=== PATIENT | male | born 1970 | race Caucasian/White ===

== ENCOUNTER 2023-05-07 16:57 | Emergency (ER) | payer BC, SELFPAY ==
[2023-05-07 16:58] VITALS: BP 165/96; PULSE 68; RESP 18; TEMP 36.3; O2SAT 94
--- NOTE | 2023-05-07 17:35 | ED.RN ---
IV documentation entered in error.
--- NOTE | 2023-05-07 17:59 | CT_ITS ---
STUDY: CT ABDOMEN AND PELVIS WITHOUT CONTRAST REASON FOR EXAM: Male, 52 years old. flank pain RADIATION DOSAGE (If Supplied By Facility): CTDIvol = ( 23.08 ) mGy, DLP = ( 1233.88 ) mGycm TECHNIQUE: Transaxial images were obtained from the dome of the diaphragm to the symphysis pubis without oral contrast, and without intravenous contrast. Sagittal and coronal images were reconstructed. Individualized dose optimization techniques were used for this CT. COMPARISON: None. FINDINGS: The visualized lung bases are unremarkable. The visualized portions of the heart are within normal limits. Liver is enlarged and fatty infiltrated without mass or bile duct dilatation.. Calcified gallstones are seen without pericholecystic edema .. Normal spleen. Normal pancreas. Normal bilateral adrenal glands. 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 Tiny nonobstructing left renal calculus. No evidence for obstruction or ureteral calculus. There is no left renal mass given the limited unenhanced nature of study. Retroaortic left renal vein noted consistent with normal variant. Normal visualized stomach. Normal small intestine. Normal colon. The appendix is visualized and appears normal. Normal abdominal aorta. Normal inferior vena cava. Normal retroperitoneum. Poorly distended thick walled bladder likely of no significance. Normal abdominal wall. Lumbar spine demonstrates mild spondylosis. CT/Abdomen/Pelvis without Cont IMPRESSION: Left nephrolithiasis without evidence for obstruction or ureteral calculus.. Cholelithiasis without evidence for acute cholecystitis. Other findings as above Electronically Signed: Skyler Tompkins MD at 19:33 EDT ,
[2023-05-07 18:13] LABS: Bacteria 0 SEEN /hpf (None Seen); Mucous, Urine 0 SEEN /hpf (<or=2+); Red Blood Cells-Urine 0 SEEN /hpf (0-5)
--- NOTE | 2023-05-07 18:13 | EX.ED.DYSGE1 ---
HPI History of Present Illness Chief Complaint: Flank Pain Informant: patient and spouse/S.O. Narrative Narrative: Intermittent left flank pain for the past month worse over 2 days. No urinary symptoms. States localized to the left flank region. History of congenital single kidney. He was started on Farxiga a month ago for his diabetes was having increasing thirst. Saw his PCP 2 days ago this has been stopped shortly prior to this. No history of kidney stones. No fevers or chills. History of hypertension diabetes and hyperlipidemia. PFSH PFSH Allergy/AdvReac Type Severity Reaction Status Date / Time bee venom protein (honey bee) Allergy Severe Anaphylaxis Verified 05/07/23 17:01 Social History Smoking Status: Never smoker ROS ROS ED Constitutional Constitutional ED: Denies chills, fever(s) or sweats Eyes Eyes: Denies change in vision ENT ENT ED: Denies dysphagia or sore throat Cardiovascular Cardiovascular: Denies chest pain, leg edema, palpitations or racing heartbeat Respiratory/Chest Respiratory/Chest: Denies cough, dyspnea or dyspnea on exertion Gastrointestinal Gastrointestinal: Denies abdominal pain, diarrhea, nausea or vomiting Genitourinary Genitourinary ED: Denies dysuria, hematuria or urinary frequency Musculoskeletal Musculoskeletal: Reports back pain; Denies extremity pain or neck pain Integumentary Denies rash or wounds Neurologic Neurologic: Denies headache(s), paresthesias or weakness EXAM Physical Exam Const Vital Signs: 05/07/23 16:58 05/07/23 18:58 05/07/23 20:00 Temperature 97.4 F L 96.9 F L Temperature Source Temporal Pulse Rate 68 78 64 Respiratory Rate 18 16 17 Blood Pressure 165/96 H 144/79 H 148/92 H Blood Pressure Mean 119 100 110 Pulse Ox 94 99 96 Oxygen Delivery Method Room Air Room Air Positive well nourished and well developed Constitutional Narrative: Nontoxic General Appearance ED: well developed and NAD HEENT Reports moist mucous membranes normocephalic and atraumatic Eyes PERRL, EOMs intact bilaterally and conjunctivae normal General Eye ED: Yes normal appearance of both eyes Neck no lymphadenopathy and supple General: Negative for tenderness Chest Wall Chest: Negative for tenderness Resp normal respiratory effort and normal air movement Effort and Inspection: symmetric chest movement; Negative for respiratory distress Cardio regular rate, regular rhythm and no murmurs Peripheral Pulses: pulses 2+ throughout GI normal to inspection, nondistended, normoactive bowel sounds and non-tender Palpation: Negative for guarding or rebound tenderness present Back/Spine no CVA tenderness and no thoracic nor lumbar tenderness Back/Spine Narrative: No rash or ecchymosis in the flank region. Extremity normal to inspection General Extremety ED: Negative for edema or tenderness General Extremity: Negative for edema Neuro oriented x3 and no sensory deficits noted Sensorium / Orientation: awake and alert Skin no rashes or lesions noted and no wounds MDM MDM MDM Narrative Medical decision making narrative: Interventions / MDM: Differential diagnosis: Flank pain, nephrolithiasis Diagnosis considered but do not suspect: No clinical shingles, urolithiasis however CT negative. My EKG interpretation: N/A Imaging independently reviewed and interpreted by myself: CT abdomen pelvis noncontrast: Tiny nephrolithiasis, no obstructive uropathy. Normal appendix. Gallstones noted. External documents reviewed: N/A Test considered but not ordered:N/A ED course: Patient declines any pain medicines intermittent left flank pain worsening last couple days. Renal stone protocol initiated. CT scan ordered. Labs stable. Urine no infection occult blood noted. CT scan with no obstructive uropathy tiny nephrolithiasis on the left side. Gallstones noted. Not having any biliary colic symptoms. Discussed results with the patient. He has no tobacco history. With hematuria will refer to urology. He will monitor for any rash for concerns of shingles. Use Tylenol as needed. All questions were answered. Re-evaluation: stable Disposition discussed with patient/family/significant other: Patient and significant other Case discussed with consulting clinician: N/A This note was generated with [employer] dictation software. It may contain incorrect words, spelling, and punctuation that were not noted in checking the note before signing. Lab Data Attestation: I reviewed the patient's lab results. Labs: Laboratory Results - last 24 hr 05/07/23 05/07/23 18:06 18:20 WBC 10.6 RBC 5.54 Hgb 15.4 Hct 45.3 MCV 81.8 MCH 27.8 MCHC 34.0 RDW Std Deviation 37.6 RDW Coeff of Kimani 12.6 Plt Count 253 MPV 10.5 Immature Gran % (Auto) 0.900 Neut % (Auto) 68.5 Lymph % (Auto) 21.1 [place] % (Auto) 7.3 Eos % (Auto) 1.5 Baso % (Auto) 0.7 Absolute Neuts (auto) 7.3 Absolute Lymphs (auto) 2.24 Nucleated RBC % 0 Sodium 140 Potassium 3.5 Chloride 105 Carbon Dioxide 27.0 Anion Gap 8 BUN 15 Creatinine 1.14 Est GFR (MDRD) Af Amer 87 Est GFR (MDRD) Non-Af 72 BUN/Creatinine Ratio 13.2 Glucose 185 H Calcium 9.3 Urine Color Yellow Urine Clarity Clear Urine pH 5.0 Ur Specific [place] 1.020 Urine Protein 30 H Urine Glucose (UA) Normal Urine Ketones Negative Urine Occult Blood 10 H Urine Nitrite Negative Urine Bilirubin Negative Urine Urobilinogen Normal Ur Leukocyte Esterase Negative Urine RBC 0 SEEN Urine WBC 0-5 SEEN Ur Squamous Epith Cells 0-5 SEEN Urine Bacteria 0 SEEN Urine Mucus 0 SEEN Radiography Diagnostic Testing: Clinical Impression(s) from Imaging Studies Abdomen/Pelvis CT 05/07/23 17:59 IMPRESSION: Left nephrolithiasis without evidence for obstruction or ureteral calculus.. Cholelithiasis without evidence for acute cholecystitis. Other findings as above Electronically Signed: Skyler Tompkins MD at 19:33 EDT Reading Location ID and State: [facility] / [place] Tel , Service support , Discharge Plan Triage Chief Complaint: Flank Pain ED Provider: Cory Singh Dx/Rx/DC Orders Clinical Impression: Hematuria, Congenital single kidney, Left flank pain Instructions: ED Flank Pain, Uncertain Cause, ED Hematuria Primary Care Provider: Kael Dove NP Referrals: Jefferson Espino MD [Med Staff - Active Staff] - 1-2 Weeks Kael Dove NP, [employer] [Primary Care Provider] - Activity Restrictions/Additional Instructions: CT scan nonobstructive small tiny stone in the kidneys. This not causing her symptoms. Mild blood in the urine. No infection. Labs are stable. Monitor for any rashes. Use Tylenol as needed. Follow-up with urology for further outpatient evaluation. Disposition Disposition: Home, Self Care Discharge Date/Time: 05/07/23 20:18
[2023-05-07 18:18] LABS: Color, Urine Yellow (Yellow); Glucose, Dipstick Normal (Normal); Ketone-Dipstick Negative (Negative); Leukocyte Esterase-Dipstick Negative /ul (Negative); Nitrite-Dipstick Negative (Negative); Occult Blood-Urine 10 /ul (Negative); Protein-Dipstick 30 mg/dl (Negative); Urine Bilirubin Dipstick Negative (Negative); Urine Clarity Clear (Clear); Urine Urobilinogen Normal (Normal)
[2023-05-07 18:28] LABS: Squamous Epithelial Cells - UA 0-5 SEEN /hpf (0-5); White Blood Cells 0-5 SEEN /hpf (0-5)
[2023-05-07 18:38] LABS: Absolute Lymphocyte Count 2.24 X10^3/uL (0.83-4.51); Absolute Neutrophil Count 7.3 X10^3/uL (2.0-7.7); Basophil# 0.07 X10^3/uL; Basophil% 0.7 % (0-1); Eosinophil# 0.16 X10^3/uL; Eosinophils% 1.5 % (0-5); Hematocrit 45.3 % (40-54); Hemoglobin 15.4 g/dL (13.0-16.5); Lymphocyte # 2.24 X10^3/ul (0.83-4.51); Lymphocyte % 21.1 % (19-41); Mean Corpuscular Hgb 27.8 pg (27.0-32.0); Mean Corpuscular Volume 81.8 fL (80-94); Mean Platelet Vol. 10.5 fl (6.2-12.0); Monocyte# 0.78 X10^3/uL; Monocyte% 7.3 % (0-10); NRBC Flagged by Analyzer 0 % (0-5); Neutrophil # 7.29 X10^3/uL (2.7-7.7); Neutrophil % 68.5 % (47-70); Platelet Count 253 K/mm3 (150-450); RBC Distribution Width CV 12.6 % (11.6-14.6); RBC Distribution Width SD 37.6 fl (35.1-43.9); Red Blood Count 5.54 M/mm3 (4.6-6.2); White Blood Count 10.6 K/mm3 (4.4-11.0)
[2023-05-07 18:51] LABS: Anion Gap 8 (5-15); BUN 15 mg/dL (7-18); BUN/Creat Ratio 13.2 RATIO (10-20); Calcium,Total 9.3 mg/dL (8.5-10.1); Chloride 105 mmol/L (98-107); Creatinine, Serum 1.14 mg/dL (0.70-1.30); EST Glomerular Filtration Rate 72 mL/min (>60); Est Glom Filt Rate - Afr Amer 87 mL/min (>60); Glucose 185 mg/dL (74-106); Potassium 3.5 mmol/L (3.5-5.1); Sodium Level 140 mmol/L (136-145)
[2023-05-07 18:58] VITALS: BP 144/79; PULSE 78; RESP 16; O2SAT 99
[2023-05-07 20:00] VITALS: BP 148/92; PULSE 64; RESP 17; TEMP 36.1; O2SAT 96
== END 2023-05-07 20:18 | disposition home or self-care (01) ==
PROVIDERS: Emergency Provider Emergency Medicine; PCP Nurse Practitioner Family; Visit Provider Emergency Medicine
DX: R31.9 Hematuria, unspecified (principal); E11.9 Type 2 diabetes mellitus without complications
CPT/HCPCS: 74176; 80048; 81001; 85025; 99283; A4216

== ENCOUNTER → 2024-12-28 | Outpatient (CLI) | payer BC, SELFPAY ==
[2024-12-28 18:32] LABS: Barbiturate Urine NEGATIVE (< 200 ng/mL); Benzodiazepine Urine NEGATIVE (< 200 ng/mL); PCP Urine NEGATIVE (< 25 ng/mL); THC Urine NEGATIVE (< 50 ng/mL)
== END | disposition home or self-care (01) ==
LOC: MTLAB 15:52
PROVIDERS: PCP Nurse Practitioner Family; Referring Provider Internal Medicine Pulmonary Disease; Visit Provider Internal Medicine Pulmonary Disease
DX: G47.10 Hypersomnia, unspecified (principal)
CPT/HCPCS: 80307